=== PATIENT | female | born 1990 | race American Indian/Alaskan Native ===

== ENCOUNTER 2017-10-10 10:05 | Emergency (ER) | payer SELFPAY ==
[2017-10-10 11:53] VITALS: BP 110/68
--- NOTE | 2017-10-10 13:26 | Emergency Department Report ---
HPI - General Chief Complaint: Extremity Injury, Lower Time Seen by Provider: 10/10/17 12:05 - HPI HPI: 27-year-old female presents today complaining of right ankle pain post fall yesterday. No head injury or loss of consciousness. Denies neck or back pain. Patient states that she twisted her ankle when she fell. Weight her pain as a 7 out of 10 and is worse with pressure and weightbearing. Denies numbness, weakness, paresthesias. Denies history of ankle injury or surgeries. Denies fever, chills, nausea, vomiting, chest pain, shortness of breath, abdominal pain. Patient also complaining of a mildly pruritic rash to her chest and back 2 weeks. No history of similar symptoms. ED Past Medical Hx - Past Medical History Hx Hypertension: No Hx CVA: No Hx Heart Attack/AMI: No Hx Congestive Heart Failure: No Hx Diabetes: No Hx Deep Vein Thrombosis: No Hx Pulmonary Embolism: No Hx GERD: No Hx Liver Disease: No Hx Renal Disease: No Hx Sickle Cell Disease: No Hx Arthritis: No Hx Headaches / Migraines: No Hx Seizures: No Hx Kidney Stones: No Hx Psychiatric Treatment: No Hx Asthma: No Hx COPD: No Hx Tuberculosis: No Hx Dementia: No Hx HIV: No - Surgical History Hx Coronary Stent: No Hx Open Heart Surgery: No Hx Pacemaker: No Hx Internal Defibrillator: No Hx Cholecystectomy: No Hx Appendectomy: No Hx Breast Surgery: No 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 - Social History Smoking Status: Never Smoker Substance Use Type: None, Alcohol - Medications Home Medications: Home Medications Medication Instructions Recorded Confirmed Last Taken Type Sulfamethoxazole/Trimethoprim 1 each PO BID #20 tablet 06/29/15 Unknown Rx [Bactrim DS TAB] Naproxen [Naprosyn] 500 mg PO BID #30 tablet 10/10/17 Unknown Rx ED Review of Systems ROS: Stated complaint: FALL, RIGHT ANKLE INJURY Other details as noted in HPI Constitutional: denies: chills, fever, malaise Eyes: denies: eye pain ENT: denies: ear pain, throat pain, congestion Respiratory: denies: cough, shortness of breath, wheezing Cardiovascular: denies: chest pain, palpitations Endocrine: no symptoms reported Gastrointestinal: denies: abdominal pain, nausea, vomiting Musculoskeletal: joint swelling, arthralgia Skin: rash Neurological: denies: headache, weakness, numbness, paresthesias Physical Exam - Physical Exam Vital Signs: Vital Signs 10/10/17 11:49 Temperature 98.3 F Pulse Rate 90 Respiratory 20 Rate Blood Pressure 110/68 O2 Sat by Pulse 100 Oximetry Physical Exam: GENERAL: The patient is well-developed and well-nourished. Patient is in NAD. SKIN: Small scaling patches over hyperpigmented base noted, posterior neck, Flexor regions of bilateral elbows. No drainage or bleeding. No signs of infection. HEAD: Normocephalic. Atraumatic. NECK: Supple, nontender, without lymphadenopathy. No vertebral or paraspinal tenderness to palpation. CHEST/LUNGS: Clear to auscultation throughout. HEART/CARDIOVASCULAR: Regular rate and rhythm. No murmurs, rubs or gallops. ABDOMEN: Abdomen is soft, nontender. Bowel sounds normoactive. No guarding or rebound tenderness. RIGHT ANKLE: Full ankle range of motion, no pain. Tenderness to palpation over the lateral aspect of the right ankle. Mild edema noted to lateral aspect of right ankle. No deformity, crepitus noted. Normal sensation. Peripheral pulses intact. Capillary refill less than 2 seconds. NEURO: Alert and oriented x 3. Antalgic gait. ED Course Vital Signs 10/10/17 11:49 Temperature 98.3 F Pulse Rate 90 Respiratory 20 Rate Blood Pressure 110/68 O2 Sat by Pulse 100 Oximetry ED Medical Decision Making - Lab Data Vital Signs 10/10/17 11:49 Temperature 98.3 F Pulse Rate 90 Respiratory 20 Rate Blood Pressure 110/68 O2 Sat by Pulse 100 Oximetry - Radiology Data Radiology results: report reviewed Right ankle 2 views: History: Right ankle injury. Findings: No bony or articular abnormality. No fracture or dislocation or soft tissue calcification. Impression: Essentially negative right ankle. - Medical Decision Making 7-year-old female presents today complaining of right ankle pain and rash to chest and back. Her x-ray results revealed no acute findings. Patient has been provided with a referral for orthopedic follow-up. Her ankle has been wrapped with Francis bandage. Patient is in no acute distress at this time. She will be discharged home and is encouraged to follow up with a primary care provider. She will be sent home on naproxen and is encouraged to return to the emergency room for any worsening symptoms. Critical care attestation.: If time is entered above; I have spent that time in minutes in the direct care of this critically ill patient, excluding procedure time. ED Disposition Clinical Impression: Rash and nonspecific skin eruption Ankle pain Qualifiers: Chronicity: acute Laterality: right Qualified Code(s): M25.571 - Pain in right ankle and joints of right foot Disposition: TO HOME OR SELFCARE Is pt being admited?: No Does the pt Need Aspirin: No Condition: Stable Instructions: Eczema (ED), Ankle Sprain (ED) Additional Instructions: Rest. Ice. Compress. Elevate. Apply Aquaphor or Cetaphil moisturizer to rash. Follow up with primary care provider or orthopedic. Return to the emergency department if symptoms worsen. Prescriptions: Naproxen [Naprosyn] 500 mg PO BID #30 tablet Referrals: JUVENCIO WILKINSON MD [Primary Care Provider] - 3-5 Days SCHUYLER BUCKNER MD [Staff Physician] - 3-5 Days Forms: Work/School Release Form(ED) Time of Disposition: 13:46
== END 2017-10-10 14:31 | disposition home or self-care (01) ==
LOC: ED 10:05
DX: M25.571 Pain in right ankle and joints of right foot (principal); R21 Rash and other nonspecific skin eruption
CPT/HCPCS: 99284

== ENCOUNTER 2018-07-10 10:55 | Emergency (ER) | payer SELFPAY ==
[2018-07-10 12:01] VITALS: BP 128/56
[2018-07-10 12:20] LABS: Bacteria,Urine 1+ /HPF (Negative); Bilirubin,Urine NEG (Negative); Blood,Urine NEG (Negative); Color,Urine Yellow (Yellow); Mucus,Urine 3+ /HPF; Urobilinogen,Urine < 2.0 mg/dL (<2.0)
[2018-07-10 12:25] LABS: Basophils % (Auto) 0.5 % (0.0-1.8); Eosinophils % (Auto) 0.3 % (0.0-4.3); Hematocrit 34.9 % (30.3-42.9); Hemoglobin 11.2 gm/dl (10.1-14.3); Lymphocytes % (Auto) 26.1 % (13.4-35.0); Mean Corpuscular HGB Conc 32 % (30-34); Mean Corpuscular Volume 78 fl (79-97); Monocytes # (Auto) 0.4 K/mm3 (0.0-0.8); Monocytes % (Auto) 4.8 % (0.0-7.3); Platelet Count 277 K/mm3 (140-440); Red Blood Count 4.49 M/mm3 (3.65-5.03)
[2018-07-10 12:27] LABS: Mean Corpuscular Hemoglobin 25 pg (28-32)
[2018-07-10 12:42] LABS: Alanine Aminotransferase 7 units/L (7-56); Albumin 4.4 g/dL (3.9-5); BUN/Creatinine Ratio 18; Blood Urea Nitrogen 7 mg/dL (7-17); Calcium 9.4 mg/dL (8.4-10.2); Hemolysis Index 4
== END 2018-07-10 13:30 ==
LOC: ED 10:55
DX: O26.899 Other specified pregnancy related conditions, unspecified trimester (principal); R10.30 Lower abdominal pain, unspecified; Z91.013 Allergy to seafood; Z91.02 Food additives allergy status; Z3A.00 Weeks of gestation of pregnancy not specified; Z53.21 Procedure and treatment not carried out due to patient leaving prior to being seen by health care provider
CPT/HCPCS: 36415; 80053; 81001; 84703; 85025

== ENCOUNTER 2018-07-14 09:25 | Emergency (ER) | payer OTHER ==
[2018-07-14] MEDS ORDERED: NACL 0.9% 1000 ML 1,000 ML IV ONE (11:20)
[2018-07-14] MEDS ORDERED: ZOFRAN IV ONE (11:20)
--- NOTE | 2018-07-14 11:22 | Emergency Department Report ---
Blank Doc - Documentation Documentation: Patient is a 28-year-old black female is proximally 6 weeks who is presenting with nausea vomiting and lower abdominal pain. Patient was seen here in the emergency department 2 days ago however she did not stay for treatment and went to another hospital. At the Hospital patient states blood work was done and she was told her potassium was low however ultrasound was not performed. Patient's continued to have lower abdominal pain with no vaginal bleeding or discharge or dysuria. On focused physical exam patient has suprapubic tenderness. Laboratory studies will be done as well as a urinalysis. Ultrasound will be performed to rule out ectopic.
--- NOTE | 2018-07-14 11:26 | Emergency Department Report ---
ED Abdominal Pain HPI - General Chief Complaint: Abdominal Pain Stated Complaint: LOWER ABD PAIN Time Seen by Provider: 07/14/18 11:04 Source: patient Mode of arrival: Wheelchair Limitations: No Limitations - History of Present Illness Initial Comments: Patient is a 28-year-old black female is proximally 6 weeks who is presenting with nausea vomiting and lower abdominal pain. Patient was seen here in the emergency department 2 days ago however she did not stay for treatment and went to another hospital. At the Hospital patient states blood work was done and she was told her potassium was low however ultrasound was not performed. Patient's continued to have lower abdominal pain with no vaginal bleeding or discharge or dysuria. Pain is 9 out of 10 to pelvic area. Crampy and it is intermittent. No alleviating or exacerbating factors and no medication taken. Denies any fever or chills. Denies any vaginal discharge. Patient is not been followed by [facility] yet. MD Complaint: abdominal pain, other (nausea and vomiting) Onset/Timin -: days(s) Location: suprapubic Radiation: none Migration to: no migration Severity: severe Severity scale (0 -10): 9 Quality: cramping Consistency: intermittent Improves With: nothing Worsens With: nothing Context: other () Associated Symptoms: nausea, vomiting, anorexia. denies: diarrhea, fever, chills, constipation, dysuria, hematemesis, hematochezia, melena, hematuria, syncope Treatments Prior to Arrival: other (none) - Related Data LMP (females 10-50): Previous Rx's Medication Instructions Recorded Last Taken Type Sulfamethoxazole/Trimethoprim 1 each PO BID #20 tablet 06/29/15 Unknown Rx [Bactrim DS TAB] Naproxen [Naprosyn] 500 mg PO BID #30 tablet 10/10/17 Unknown Rx Doxylamine Succinate/Vit B6 1 each PO QHS PRN #15 tablet. 07/14/18 Unknown Rx [Kar Brock 10-10 mg Tablet] Nitrofurantoin [place]/M-Cryst 100 mg PO Q12HR 5 Days #10 capsule 07/14/18 Unknown Rx [Macrobid CAP] Vit No.130/Iron/Folic 1 each PO QAM 30 Days #30 tablet 07/14/18 Unknown Rx [ Tablet] Allergies Allergy/AdvReac Type Severity Reaction Status Date / Time iodine Allergy Swelling Verified 07/14/18 09:29 shellfish derived Allergy Swelling Verified 07/14/18 09:29 ED Review of Systems ROS: Stated complaint: LOWER ABD PAIN Other details as noted in HPI Constitutional: denies: chills, fever Eyes: denies: eye pain, eye discharge ENT: denies: ear pain, throat pain, congestion Respiratory: denies: cough, shortness of breath, SOB with exertion, SOB at rest , stridor, wheezing Cardiovascular: denies: chest pain, palpitations, edema, syncope Gastrointestinal: abdominal pain, nausea, vomiting. denies: diarrhea, constipation, hematemesis, melena, hematochezia Genitourinary: denies: urgency, dysuria, frequency, hematuria, discharge Musculoskeletal: denies: back pain, joint swelling, arthralgia Skin: denies: rash, lesions Neurological: denies: headache, weakness ED Past Medical Hx - Past Medical History Previous Medical History?: No Hx Hypertension: No Hx CVA: No Hx Heart Attack/AMI: No Hx Congestive Heart Failure: No Hx Diabetes: No Hx Deep Vein Thrombosis: No Hx Pulmonary Embolism: No Hx GERD: No Hx Liver Disease: No Hx Renal Disease: No Hx Sickle Cell Disease: No Hx Arthritis: No Hx Headaches / Migraines: No Hx Seizures: No Hx Kidney Stones: No Hx Psychiatric Treatment: No Hx Asthma: No Hx COPD: No Hx Tuberculosis: No Hx Dementia: No Hx HIV: No - Surgical History Past Surgical History?: Yes Hx Coronary Stent: No Hx Open Heart Surgery: No Hx Pacemaker: No Hx Internal Defibrillator: No Hx Cholecystectomy: No Hx Appendectomy: No Hx Breast Surgery: No 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 07/14/18 Unknown Rx [Diclegiwilliam Dr 10-10 mg Tablet] Nitrofurantoin [place]/M-Cryst 100 mg PO Q12HR 5 Days #10 capsule 07/14/18 Unknown Rx [Macrobid CAP] Vit No.130/Iron/Folic 1 each PO QAM 30 Days #30 tablet 07/14/18 Unknown Rx [ Tablet] ED Physical Exam - General Limitations: No Limitations General appearance: alert, in no apparent distress - Head Head exam: Present: atraumatic, normocephalic, normal inspection - Eye Eye exam: Present: normal appearance, PERRL, EOMI Pupils: Present: normal accommodation - ENT ENT exam: Present: normal exam, normal orophraynx, mucous membranes moist, TM's normal bilaterally, normal external ear exam - Neck Neck exam: Present: normal inspection, full ROM. Absent: tenderness, lymphadenopathy - Respiratory Respiratory exam: Present: normal lung sounds bilaterally. Absent: respiratory distress, wheezes, rales, rhonchi, stridor, chest wall tenderness, accessory muscle use - Cardiovascular Cardiovascular Exam: Present: regular rate, normal rhythm, normal heart sounds. Absent: systolic murmur, diastolic murmur - GI/Abdominal GI/Abdominal exam: Present: soft, tenderness (suprapubic tenderness), normal bowel sounds. Absent: distended, guarding, rebound, rigid, organomegaly, mass, bruit, pulsatile mass, hernia - Extremities Exam Extremities exam: Present: normal inspection, full ROM, normal capillary refill , other. Absent: tenderness, pedal edema, joint swelling, calf tenderness - Back Exam Back exam: Present: normal inspection, full ROM, other (ambulates without any difficulties). Absent: tenderness, CVA tenderness (R), CVA tenderness (L), muscle spasm, paraspinal tenderness, vertebral tenderness, rash noted - Neurological Exam Neurological exam: Present: alert, oriented X3, normal gait - Psychiatric Psychiatric exam: Present: normal affect, normal mood - Skin Skin exam: Present: warm, dry, intact, normal color. Absent: rash ED Course Vital Signs 07/14/18 07/14/18 09:29 16:08 Temperature 98.1 F 98.6 F Pulse Rate 100 H 69 Respiratory 24 18 Rate Blood Pressure 126/82 Blood Pressure 125/77 [Left] O2 Sat by Pulse 100 100 Oximetry - Reevaluation(s) Reevaluation #1: 07/14/18 12:37 given Zofran 4 g IV and normal saline 1 L in open reevaluation she still a lot better. Her laboratory evaluations that her urine ketones are at 80 and urine is contaminated with 1+ bacteria patient asymptomatic. She is so we will go ahead and treat for 3 days with Macrobid. She received then D5 normal saline 1 L at present. 07/14/18 15:38 Reevaluation #2: 07/14/18 15:38 Patient stable. She says she is feeling better D5 normal saline. Abdominal exam nontender to palpate. Nausea has been relieved and no vomiting emergency room. Reevaluation #3: 07/14/18 15:44 Tolerating ice water in emergency room without any nausea or vomiting. An abdominal pain has resolved. ED Medical Decision Making - Lab Data Result diagrams: 07/14/18 11:37 07/14/18 11:37 Lab Results 07/14/18 07/14/18 07/14/18 Range/Units 11:37 11:37 11:37 WBC 6.6 (4.5-11.0) K/mm3 RBC 4.22 (3.65-5.03) M/mm3 Hgb 10.5 (10.1-14.3) gm/dl Hct 32.7 (30.3-42.9) % MCV 77 L (79-97) fl MCH 25 L (28-32) pg MCHC 32 (30-34) % RDW 13.5 (13.2-15.2) % Plt Count 222 (140-440) K/mm3 Lymph % (Auto) 30.8 (13.4-35.0) % [place] % (Auto) 6.9 (0.0-7.3) % Eos % (Auto) 0.2 (0.0-4.3) % Baso % (Auto) 0.5 (0.0-1.8) % Lymph # 2.0 (1.2-5.4) K/mm3 [place] # 0.5 (0.0-0.8) K/mm3 Eos # 0.0 (0.0-0.4) K/mm3 Baso # 0.0 (0.0-0.1) K/mm3 Seg Neutrophils % 61.6 (40.0-70.0) % Seg Neutrophils # 4.1 (1.8-7.7) K/mm3 Sodium 135 L (137-145) mmol/L Potassium 3.6 (3.6-5.0) mmol/L Chloride 100.3 (98-107) mmol/L Carbon Dioxide 21 L (22-30) mmol/L Anion Gap 17 mmol/L BUN 6 L (7-17) mg/dL Creatinine 0.4 L (0.7-1.2) mg/dL Estimated GFR > 60 ml/min BUN/Creatinine Ratio 15 % Glucose 100 (65-100) mg/dL Calcium 9.3 (8.4-10.2) mg/dL HCG, Quant 12679 H (0-4) mIU/mL Urine Color (Yellow) Urine Turbidity (Clear) Urine pH (5.0-7.0) Ur Specific [place] (1.003-1.030) Urine Protein (Negative) mg/dL Urine Glucose (UA) (Negative) mg/dL Urine Ketones (Negative) mg/dL Urine Blood (Negative) Urine Nitrite (Negative) Urine Bilirubin (Negative) Urine Urobilinogen (<2.0) mg/dL Ur Leukocyte Esterase (Negative) Urine WBC (Auto) (0.0-6.0) /HPF Urine RBC (Auto) (0.0-6.0) /HPF U Epithel Cells (Auto) (0-13.0) /HPF Urine Bacteria (Auto) (Negative) /HPF Urine Mucus /HPF 07/14/18 Range/Units 11:39 WBC (4.5-11.0) K/mm3 RBC (3.65-5.03) M/mm3 Hgb (10.1-14.3) gm/dl Hct (30.3-42.9) % MCV (79-97) fl MCH (28-32) pg MCHC (30-34) % RDW (13.2-15.2) % Plt Count (140-440) K/mm3 Lymph % (Auto) (13.4-35.0) % [place] % (Auto) (0.0-7.3) % Eos % (Auto) (0.0-4.3) % Baso % (Auto) (0.0-1.8) % Lymph # (1.2-5.4) K/mm3 [place] # (0.0-0.8) K/mm3 Eos # (0.0-0.4) K/mm3 Baso # (0.0-0.1) K/mm3 Seg Neutrophils % (40.0-70.0) % Seg Neutrophils # (1.8-7.7) K/mm3 Sodium (137-145) mmol/L Potassium (3.6-5.0) mmol/L Chloride (98-107) mmol/L Carbon Dioxide (22-30) mmol/L Anion Gap mmol/L BUN (7-17) mg/dL Creatinine (0.7-1.2) mg/dL Estimated GFR ml/min BUN/Creatinine Ratio % Glucose (65-100) mg/dL Calcium (8.4-10.2) mg/dL HCG, Quant (0-4) mIU/mL Urine Color Yellow (Yellow) Urine Turbidity Clear (Clear) Urine pH 6.0 (5.0-7.0) Ur Specific [place] 1.031 H (1.003-1.030) Urine Protein 30 mg/dl (Negative) mg/dL Urine Glucose (UA) Neg (Negative) mg/dL Urine Ketones 80 (Negative) mg/dL Urine Blood Neg (Negative) Urine Nitrite Neg (Negative) Urine Bilirubin Neg (Negative) Urine Urobilinogen < 2.0 (<2.0) mg/dL Ur Leukocyte Esterase Neg (Negative) Urine WBC (Auto) 2.0 (0.0-6.0) /HPF Urine RBC (Auto) 3.0 (0.0-6.0) /HPF U Epithel Cells (Auto) 28.0 H (0-13.0) /HPF Urine Bacteria (Auto) 1+ (Negative) /HPF Urine Mucus 3+ /HPF - Radiology Data Radiology results: report reviewed Ultrasound transvaginal OB and transabdominal less than 14 weeks dictated by radiologist and report reviewed by myself. Please see report below. Patient: KAMALA MACK MR#: [id number] : 1990 Acct:[id number] Age/Sex: 28 / F ADM Date: 07/14/18 Loc: ED Attending Dr: Ordering Physician: GRANT LEES MD Date of Service: 07/14/18 Procedure(s): US OB transvaginal Accession Number(s): [id number] cc: GRANT LEES MD ULTRASOUND OB LESS THAN 14 WEEKS FETUS ULTRASOUND OB TRANSVAGINAL HISTORY: with lower abdominal pain. COMPARISON: None. TECHNIQUE: Transabdominal and transvaginal ultrasound with color doppler interrogation. FINDINGS: Uterus: 9 x 6 x 6 cm. No uterine mass is identified. The cervix is obscured. Endometrium: An intrauterine gestational sac containing a pole and yolk sac is identified. Heart rate measures 119 beats per minute. Estimated age on ultrasound in 6 weeks, 6 days. A small subchorionic hemorrhage is identified along the right lateral border of the gestational sac. Right ovary: Normal. Left ovary: Normal. No pelvic fluid or mass is identified. Normal color doppler interrogation. IMPRESSION: Viable, single intrauterine as described above. Small subchorionic hemorrhage. Transcribed By: TTR Dictated By: EULALIA MI JR, MD Electronically Authenticated By: EULALIA MI JR, MD Signed Date/Time: 07/14/181453 DD/ 51 TD/TT: 07/14/181453 Patient: KAMALA MACK MR#: [id number] : 1990 Acct:[id number] Age/Sex: 28 / F ADM Date: 07/14/18 Loc: ED Attending Dr: Ordering Physician: GRANT LEES MD Date of Service: 07/14/18 Procedure(s): US OB <= 14 weeks fetus Accession Number(s): [id number] cc: GRANT LEES MD ULTRASOUND OB LESS THAN 14 WEEKS FETUS ULTRASOUND OB TRANSVAGINAL HISTORY: with lower abdominal pain. COMPARISON: None. TECHNIQUE: Transabdominal and transvaginal ultrasound with color doppler interrogation. FINDINGS: Uterus: 9 x 6 x 6 cm. No uterine mass is identified. The cervix is obscured. Endometrium: An intrauterine gestational sac containing a pole and yolk sac is identified. Heart rate measures 119 beats per minute. Estimated age on ultrasound in 6 weeks, 6 days. A small subchorionic hemorrhage is identified along the right lateral border of the gestational sac. Right ovary: Normal. Left ovary: Normal. No pelvic fluid or mass is identified. Normal color doppler interrogation. IMPRESSION: Viable, single intrauterine as described above. Small subchorionic hemorrhage. Transcribed By: TTR Dictated By: EULALIA MI JR, MD Electronically Authenticated By: EULALIA MI JR, MD Signed Date/Time: 07/14/181453 DD/ 51 TD/TT: 07/14/181453 - Medical Decision Making Patient reports that she is having pelvic pain and nausea and vomiting and she was here 2 days ago left without treatment. She says she went to another hospital and they did blood work but did not do ultrasound. She said they told her that her potassium was low. She is here today to be seen and evaluated because she says she is 6 weeks . Patient was screened by Dr. Lees orders [facility]. Patient examined by myself and physical findings for suprapubic tenderness otherwise physical exam is normal. Ultrasound transabdominal and transvaginal revealed patient's at 6 weeks and 0 days gestation with heart rate of 119. Small subchorionic hemorrhage was also noted on ultrasound. This was dictated by radiologist and report reviewed by myself. She had laboratory studies to include CBC which is stable and her BMP stable except for minor decrease in sodium of 135. She had urinalysis which was contaminated but she did have positive bacteria and urine ketones of 80 which suggests dehydration. Patient was given IV fluid normal saline emergency room 1 L, Zofran 4 mg IV. She reports relief of nausea and that she felt better after IV fluid. Patient able to tolerate ice water and emergency room with any nausea or vomiting. I discuss her ultrasound report, laboratory findings the patient and told her she needs to follow up with OB/ COUNTER HELPER. I referred her to on-call [facility]. Patient discharged home in stable condition with prescription for vitamin to start care, Macrobid for urinary tract infection and Diclegis for nausea and vomiting. Patient discharged home in stable condition vital signs are stable and afebrile. She is feeling much better. - Differential Diagnosis ectopic , threatened miscarriage, UTI, Critical care attestation.: If time is entered above; I have spent that time in minutes in the direct care of this critically ill patient, excluding procedure time. ED Disposition Clinical Impression: Nausea and vomiting during , Asymptomatic bacteriuria in in first trimester, Dehydration during Abdominal pain during Qualifiers: Trimester: first trimester Qualified Code(s): O26.891 - Other specified related conditions, first trimester Disposition: DC- TO HOME OR SELFCARE Is pt being admited?: No Does the pt Need Aspirin: No Condition: Stable Instructions: (ED), Dehydration (ED), Acute Nausea and Vomiting (ED) , Abdominal Pain in (ED) Additional Instructions: Please follow-up with your [facility] in 2 days and if he do not have [facility] follow- up with Dr. Paige Take directly just as ordered with nausea and vomiting. This medication causes drowsiness see a need to take it at night and do not drive or operate heavy machinery while taking Taking vitamin. Increase fluid intake If symptoms returns, he is return to the emergency room Prescriptions: Doxylamine Succinate/Vit B6 [Kar Brock 10-10 mg Tablet] 1 each PO QHS PRN #15 tablet. PRN Reason: Nausea And Vomiting Nitrofurantoin [place]/M-Cryst [Macrobid CAP] 100 mg PO Q12HR 5 Days #10 capsule Vit No.130/Iron/Folic [ Tablet] 1 each PO QAM 30 Days #30 tablet Referrals: JUVENCIO WILKINSON MD [Primary Care Provider] - 07/16/18 NEGRITO PAIGE [Staff Physician] - 07/16/18 Forms: Work/School Release Form(ED)
[2018-07-14 11:55] LABS: Basophils % (Auto) 0.5 % (0.0-1.8); Eosinophils % (Auto) 0.2 % (0.0-4.3); Hematocrit 32.7 % (30.3-42.9); Hemoglobin 10.5 gm/dl (10.1-14.3); Lymphocytes % (Auto) 30.8 % (13.4-35.0); Mean Corpuscular HGB Conc 32 % (30-34); Mean Corpuscular Volume 77 fl (79-97); Monocytes # (Auto) 0.5 K/mm3 (0.0-0.8); Monocytes % (Auto) 6.9 % (0.0-7.3); Platelet Count 222 K/mm3 (140-440); Red Blood Count 4.22 M/mm3 (3.65-5.03); Red Cell Distribution Width 13.5 % (13.2-15.2)
[2018-07-14 12:06] LABS: BUN/Creatinine Ratio 15; Blood Urea Nitrogen 6 mg/dL (7-17); Calcium 9.3 mg/dL (8.4-10.2); Hemolysis Index 3
[2018-07-14 12:09] LABS: Bacteria,Urine 1+ /HPF (Negative); Bilirubin,Urine NEG (Negative); Blood,Urine NEG (Negative); Color,Urine Yellow (Yellow); Mucus,Urine 3+ /HPF; Urobilinogen,Urine < 2.0 mg/dL (<2.0)
[2018-07-14 12:23] LABS: Mean Corpuscular Hemoglobin 25 pg (28-32)
[2018-07-14] MEDS ORDERED: D5NS 1,000 ML IV SCH (14:00)
--- NOTE | 2018-07-14 15:00 | Ultrasound Report ---
ULTRASOUND OB LESS THAN 14 WEEKS FETUS ULTRASOUND OB TRANSVAGINAL HISTORY: with lower abdominal pain. COMPARISON: None. TECHNIQUE: Transabdominal and transvaginal ultrasound with color doppler interrogation. FINDINGS: Uterus: 9 x 6 x 6 cm. No uterine mass is identified. The cervix is obscured. Endometrium: An intrauterine gestational sac containing a pole and yolk sac is identified. Heart rate measures 119 beats per minute. Estimated age on ultrasound in 6 weeks, 6 days. A small subchorionic hemorrhage is identified along the right lateral border of the gestational sac. Right ovary: Normal. Left ovary: Normal. No pelvic fluid or mass is identified. Normal color doppler interrogation. IMPRESSION: Viable, single intrauterine as described above. Small subchorionic hemorrhage.
[2018-07-14 16:10] VITALS: BP 125/77
== END 2018-07-14 16:08 | disposition home or self-care (01) ==
LOC: ED 09:25
DX: O26.891 Other specified pregnancy related conditions, first trimester (principal); E86.0 Dehydration; R82.71 Bacteriuria; Z91.013 Allergy to seafood; Z91.041 Radiographic dye allergy status
CPT/HCPCS: 36415; 76801; 76817; 80048; 81001; 84702; 85025; 96361; 96374; 99284; J2405; J7030; J7042